=== PATIENT | female | born 1950 | race Caucasian/White ===

== ENCOUNTER → 2018-03-10 | Outpatient (CLI) | payer OTHER ==
[~2018-03-10] VITALS: Ht 172.7 cm; Wt 66.2 kg
[~2018-03-10] MED LIST: ALENDRONATE SOD70 MG PO; AMBIEN 5 MG TABL5 M1 PO; ASPIR 8181 M1 PO; FISH OIL 1,001000 M2 PO; HYDREA 500 MG500 M1 PO; IBUPROFEN 200200 M1 PO; LIPITOR10 MG PO; TRAMADOL 50 MG50 MG PO; VITAMIN D1000 UNI1 PO; XALATAN2.5 ML OPHTHALMIC
--- NOTE | ~2018-03-10 | HPC ---
[facility] [place] [address] PAIN MANAGEMENT CONSULTATION Name: CELIA HARO Room #: REG NEELIMA Oracio.#: [id number] Admission: 03/10/18 Attend Phys: Yakov Martinez MD Discharge: Date of : 50 Report #: [id number] THIS REPORT FOR: //name// CC: Kian Martinez DATE OF SERVICE: 03/10/2018 PRIMARY CARE PHYSICIAN: Kian Cary MD CHIEF COMPLAINT: Pain in the left leg and back pain. HISTORY OF PRESENT ILLNESS: The patient is a 68-year-old female who has been referred to the pain clinic for evaluation. She has been complaining of pain regarding her low back as well as at the left hip. She has had some pain in her hip and lumbar disk disease. She has been treated for trochanteric bursitis. She has noticed some progression of her left hip pain. She states that she felt a popping sensation and noticed an increase in pain. She has tried nonsteroidal anti-inflammatory medication with minimal relief. X-ray was negative for fracture and only showed mild arthritis. Feels like she has been having some tight spasms. She has tried tramadol and Zanaflex. Feels that the range of motion is good, but still has noted pain and discomfort in the left leg. She was also provided a Medrol Dosepak. The patient has been referred to the pain clinic for possibility of an epidural steroid injection. ALLERGIES: SOME PAIN MEDICINES HAVE CAUSED NAUSEA. HYDROCODONE, OXYCODONE AND CODEINE. MEDICATIONS: Cholecalciferol 1000 units, vitamin D 1000 units, Advair, Advil 200 mg, takes 600 mg q. 6 hours p.r.n., aspirin 81 mg, docosahexaenoic acid 1000 mg, fish oil, Xalatan 0.005% eye drops, Ambien 5 mg p.r.n. sleep, Lipitor 10 mg, Hydroxyurea 500 mg Tuesday, , Tuesday, 1 cap and 2 caps Tuesday, Tuesday and Tuesday, alendronate 70 mg weekly, tramadol 50 mg q. 6 hours p.r.n. PAST MEDICAL HISTORY: Thrombocytosis, joint disease/arthritis shoulders and hips, hyperlipidemia, thrombocytosis for greater than 20 years, hypercholesterolemia, osteoporosis, trochanteric bursitis, patent foramen ovale, and lumbar disease. PAST SURGICAL HISTORY: Appendectomy in 1987, bilateral shoulder surgery in 2004, arthroscopic. SOCIAL HISTORY: She has been retired for 6 years. REVIEW OF SYSTEMS: Generally good health, decreased appetite, glaucoma, nausea and vomiting, lightheadedness, dizziness, numbness and tingling sensation, [place] [address] PAIN MANAGEMENT CONSULTATION Name: CELIA HARO Room #: REG NEELIMA Cooper#: [id number] Admission: 03/10/18 Attend Phys: Yakov Martinez MD Discharge: Date of : 50 Report #: [id number] insomnia, cold intolerance. LABORATORY DATA: 1. MRI of the lumbar spine dated 03/02/2018. 2. L2-L3 mild facet joint arthrosis and peripheral disk bulge with proximal foraminal narrowing. 3. L3-L4 broad-based disk bulge with facet hypertrophy causes mild trifold type central canal stenosis and bilateral foraminal narrowing. 4. L4-L5 disk bulge on the left paracentral annular fissure. Bilateral facet hypertrophy and small joint effusions. Mild central canal and lateral recess stenosis. 5. L5-S1 mild disk bulge, bilateral facet hypertrophy and right joint effusion. No significant stenosis. 6. Multilevel disk disease with facet arthropathy. 7. MRI of the left hip and pelvis dated 03/02/2018. IMPRESSION: Bilateral hip osteoarthritis with subchondral cyst in the acetabulum. No evidence of acute left hip pathology. PAIN CLINIC ASSESSMENT/PQRS: 1. History of osteoarthritis. The patient has osteoarthritis involving her hips and shoulders. 2. Rheumatoid arthritis. The patient has not been treated for rheumatoid arthritis. 3. Height 5 feet 8 inches. Weight 146 pounds, BMI is 22.2. 4. Vital signs: Blood pressure 117/70, pulse 68, respiratory rate 16, room air saturation 99%. 5. Pain intensity 0 with medication. 6. Fall risk. The patient has not fallen in the last 3 months. 7. Blood thinner. The patient is not on a blood thinning medication. 8. Hypertension. The patient is not being treated for hypertension. 9. Opioid therapy greater than 6 weeks. The patient is not on opioids greater than 6 weeks. 10. Risk assessment tool, low for use of opioids. 11. Functional assessment tool . 12. Recreational drug use. The patient denies use of recreational drugs. 13. Tobacco: The patient has never smoked. 14. Alcohol. The patient drinks alcoholic beverages about once per month. PHYSICAL EXAMINATION: GENERAL: The patient is a well-developed, well-nourished white female. Appears her stated age. She is alert and oriented x 3. Affect is appropriate. Speech is fluent. HEENT: Normocephalic, atraumatic. Extraocular eye muscles intact. Sclerae nonicteric. Mucous membranes are moist. NECK: Without adenopathy or JVD. [address] [address] PAIN MANAGEMENT CONSULTATION Name: CELIA HARO Room #: REG [facility]#: [id number] Admission: 03/10/18 Attend Phys: Yakov Martinez MD Discharge: Date of : 50 Report #: [id number] HEART: Regular rate. S1, S2. LUNGS: Clear to auscultation without rhonchi or rales. ABDOMEN: Nontender. Bowel sounds present. EXTREMITIES: Upper extremity muscle strength judged to be 5/5 for the major muscle groups in the upper extremity. Deep tendon reflexes are +2 at the biceps bilaterally. The patient is without significant scoliosis, kyphosis or lower doses. Left and right lateral bending cause some discomfort with left lateral bending. Reid's sign is negative. Anterior, posterior spring tests are negative. The patient has some pain and discomfort in the left thigh in the anterior portion. Deep tendon reflexes are absent at the knees bilaterally, trace at the ankles bilaterally. The patient is able to rise up on her toes, rise upon her heels. IMPRESSION: 1. The patient complains of pain and discomfort in the L2-L3 anterior portion of her right thigh. 2. Lumbar radiculopathy L2-L3 area with numbness and weakness. 3. Joint disease/arthritis shoulders and hips. 4. Hyperlipidemia. 5. Thrombocytosis for greater than 20 years. 6. Hypercholesterolemia. 7. Osteoporosis. 8. Trochanteric bursitis. 9. Patent foramen ovale. 10. Lumbar disease. RECOMMENDATIONS: We discussed treatment options with the patient. Risks and benefits of an epidural steroid injection were discussed. Possible complications of the procedure were reviewed. They include infection, increased muscle soreness, headache, bleeding, no improvement in pain, paralysis, the patient elects to proceed. PROCEDURE NOTE: The patient was taken to the procedure area. She was assisted in getting on the examination table. A pillow was placed under her abdomen to bolster and improved positioning. Fluoroscopy used for anterior, posterior as well as lateral viewing were implemented. The patient's back was sterilely prepped with a Betadine solution. It was allowed to dry. A 0.25% bupivacaine was infiltrated at the L2-L3 interspace. This area had been sterilely prepped. A right paraspinus direction was used with a 17-gauge Tuohy needle. After appropriate placement, a total of 80 mg Depo-Medrol, 40 mg triamcinolone and 2 mL of 0.25% bupivacaine was injected. The patient's pain was 0 at the time of discharge. There were no complications. She will follow up in the future. A total of 9 seconds [place] [address] PAIN MANAGEMENT CONSULTATION Name: CELIA HARO Room #: REG CL Kenneth#: [id number] Admission: 03/10/18 Attend Phys: Yakov Martinez MD Discharge: Date of : 50 Report #: [id number] We would like to thank you for letting us participate in her care. We hope she continues to improve. By: [id number] Yakov Martinez MD /ABNER
[2018-03-10 09:32] VITALS: BP 117/70
== END | disposition home or self-care (01) ==
LOC: PAIN 06:44
DX: M54.16 Radiculopathy, lumbar region (principal); G89.29 Other chronic pain; M19.90 Unspecified osteoarthritis, unspecified site; M10.9 Gout, unspecified; Z79.82 Long term (current) use of aspirin; Z98.890 Other specified postprocedural states; Z79.899 Other long term (current) drug therapy